=== PATIENT | male | born 1935 | race Caucasian/White ===

== ENCOUNTER 2017-01-02 05:49 | Day surgery (SDC) | payer MEDICARE ==
[~2017-01-02 05:49] MED LIST: ASPIRIN325 M3 PO; ASPIRIN81 M1 PO; ATENOLOL25 M1 PO; ATORVASTATIN CA20 M1 PO; AZITHROMYCIN250 M1 PO; BROVANA15 MCG/22 INH; CARDIZEM CD180 M1 PO; COLACE100 M1 PO; COUMADIN3 M1 PO; CULTURELLE1 EAC1 PO; ELIQUIS5 M1 PO; HUMALOG100 UNITS/ SC; IPRAT-ALBUT 0.5-3 ML AERO NEB; LASIX40 M1 PO; LATANOPROST2.5 M1 OP; METOPROLOL SUCC25 M1 PO; MIRALAX17 G2 PO; OMEPRAZOLE20 M4 PO; PERIDEX118 ML MT; PREDNISONE10 M1 PO; PULMICORT0.5 MG/22 INH; SYMBICORT 80-41 PUFF; TYLENOL325 M2 PO; VITAMIN D31000 UNI3 PO
[2017-01-02 06:49] LABS: BASO % 0.4 % (0-2); EOS % 0.6 % (0-7); EOSINOPHIL ABSOLUTE COUNT 0.1 tho/cmm (0.0-0.7); HCT-HEMATOCRIT 39.9 % (36.0-53.5); HGB-HEMOGLOBIN 13.5 gm/dl (13.5-17.0); LYMPH % 24.6 % (20-45); MCH (MEAN CORPUSCULAR HGB) 31.3 pg (28.0-32.0); MCHC MEAN CORPUSCULAR HGB CONC 33.8 % (32.0-36.0); MCV (MEAN CELL VOLUME) 92.6 fl (82.0-96.0); MEAN PLATELET VOLUME 9.1 cmc (9.4-12.4); MONO % 9.1 % (0-12); MONOCYTE ABSOLUTE COUNT 0.7 tho/cmm (0.0-1.2); NEUTROPHIL ABSOLUTE COUNT 5.3 tho/cmm (1.6-8.0); NEUTROPHIL-AUTOMATED 5.3 tho/cmm (1.6-8.0); NEUTROPHILS % 65.3 % (40-80); PLATELET COUNT 294 tho/cmm (150-450); RED BLOOD COUNT 4.31 mil/cmm (4.40-5.70); RED CELL DISTRIBUTION WIDTH 13.8 % (12.4-16.4); WHITE BLOOD COUNT 8.1 tho/cmm (4.0-10.0)
[2017-01-02 06:54] LABS: INR 1.1 INR (0.9-1.1); PROTHROMBIN TIME 12.7 SECONDS (9.0-13.6)
[2017-01-02 07:01] LABS: ANION GAP 11 mmol/L (0-20); BLOOD UREA NITROGEN 15 mg/dl (6-24); CALCIUM 9.1 mg/dl (8.5-10.5); CARBON DIOXIDE-VENOUS 31 mmol/L (22-32); CHLORIDE 103 mmol/l (96-110); CREATININE 1.32 mg/dl (0.60-1.30); GLUCOSE 92 mg/dL (70-110); SODIUM 142 mmol/L (135-145); eGFR VALUE FOR BLACK 59 mL/Min
[2017-01-02 07:03] LABS: POTASSIUM 2.9 mmol/L (3.7-5.1)
== END 2017-01-02 14:10 ==
LOC: SHSB 05:49
PROVIDERS: Surgery Vascular Surgery
PROC: B41DYZZ Fluoroscopy of Aorta and Bilateral Lower Extremity Arteries using Other Contrast (ICD-10-PCS; principal; 2017-01-02)
DX: I70.322 Atherosclerosis of unspecified type of bypass graft(s) of the extremities with rest pain, left leg (principal); I48.91 Unspecified atrial fibrillation; E78.5 Hyperlipidemia, unspecified; I10 Essential (primary) hypertension; I25.10 Atherosclerotic heart disease of native coronary artery without angina pectoris; K21.9 Gastro-esophageal reflux disease without esophagitis; N40.0 Benign prostatic hyperplasia without lower urinary tract symptoms; Z79.01 Long term (current) use of anticoagulants; Z79.52 Long term (current) use of systemic steroids; Z79.82 Long term (current) use of aspirin; Z79.899 Other long term (current) drug therapy; Z88.4 Allergy status to anesthetic agent; Z88.5 Allergy status to narcotic agent; Z85.118 Personal history of other malignant neoplasm of bronchus and lung; Z87.891 Personal history of nicotine dependence; Z95.1 Presence of aortocoronary bypass graft; Z98.890 Other specified postprocedural states
CPT/HCPCS: C1769; C1887; J2250; J3010; J7030; Q9967